=== PATIENT | female | born 1965 | race African-American/Black ===

== ENCOUNTER 2016-05-25 19:45 | Emergency (ER) | payer BC ==
[~2016-05-25 19:45] MED LIST: AMITRIPTYLINE H50 M1 PO; ASPIR-LOW81 M1 PO; BUTALB-ACETAMI1 EAC1 PO; CAPTOPRIL25 M1 PO; CARVEDILOL3.125 M1 PO; COREG3.125 M1 PO; CYCLOBENZAPRINE5 M1 PO; GLIPIZIDE10 M2 PO; GLUCOPHAGE1000 M1 PO; GLUCOTROL10 M1 PO; JARDIANCE25 MG PO; K-TAB ER20 ME1 PO; LASIX40 M1 PO; MAXZIDE 75 MG-501 EA PO; MECLIZINE HCL25 M3 PO; METFORMIN HCL1000 M2 PO; NORCO 5-325 TA1 EACH PO; OMEPRAZOLE20 M3 PO; TESSALON PERLE100 M1 PO; TRIAMTERENE-HC1 EAC1 PO; TRIAMTERENE-HC1 EAC2 PO
[2016-05-25] MEDS ORDERED: CHERATUSSIN AC118 M1 PO (20:15)
[2016-05-25] MEDS ORDERED: PREDNISONE10 M1 PO (20:15)
== END 2016-05-25 21:23 ==
LOC: EDMED 19:45
DX: J20.9 Acute bronchitis, unspecified (principal); I10 Essential (primary) hypertension; Z85.3 Personal history of malignant neoplasm of breast; Z90.49 Acquired absence of other specified parts of digestive tract; Z98.890 Other specified postprocedural states